=== PATIENT | female | born 1935 | race African-American/Black ===

== ENCOUNTER 2017-07-14 12:58 | Inpatient (IN) | payer MEDICARE ==
[~2017-07-14] VITALS: Ht 157.5 cm; Wt 66.2 kg
--- NOTE | ~2017-07-14 | EKG ---
[place] [address] [address] [facility] [place] [address] ELECTROCARDIOGRAM REPORT Name: LOBO PONCE Room #: 315-P ADM IN M.R.#: [id number] Admission: 07/14/17 Attend Phys: Kev Aparicio MD Discharge: Date of : 33 Report #: [id number] THIS REPORT FOR: //name// [facility] ED Test Date: 2017-07-14 Test Time: 14:52:18 Pat Name: LOBO PONCE Department: Room: [facility] Gender: F Rn Lab: [place] PANIAGUA : 1935 Requested By: Rissa Hearn Order Number: [id number] MD: Ryley Suarez Measurements Intervals [place] Rate: 57 P: 56 HI: 145 QRS: 33 QRSD: 99 T: 25 QT: 491 QTc: 478 Interpretive Statements Sinus rhythm Probable LVH with secondary repol abnrm Possible septal infarct, age indeterminate Compared to ECG 06/20/2009 10:56:59 No significant change was found Electronically Signed On 07-15-2017 12:42:51 CDT by Ryley Suarez [email or web address] <ELECTRONICALLY SIGNED> By: Ryley Suarez MD, [facility] 07/15/17 1242 1452 1452 Ryley Suarez MD, [facility] /EPI
--- NOTE | ~2017-07-14 | 2DMMODE ---
[facility] [address] [place] [address] 2 D/M-MODE ECHOCARDIOGRAM Name: LOBO PONCE Room #: 315-P ADM IN M.R.#: [id number] Admission: 07/14/17 Attend Phys: Kev Aparicio, Discharge: Date of : 33 Date of Service: 07/15/17 0940 Report #: [id number] THIS REPORT FOR: //name// APPROVED REPORT Study performed: 07/15/2017 08:23:42 EXAM: Comprehensive 2D, Doppler, and color-flow Echocardiogram Patient Location: Bedside Room #: 315 Status: routine BSA: 1.67 HR: 66 bpm BP: 141/67 mmHg Other Information Study Quality: Good Indications Syncope 2D Dimensions RVDd: 37.08 mm LVEF(%): 81.83 (>50%) IVSd: 9.99 (7-11mm) LVOT Diam: 18.68 (18-24mm) LVDd: 44.74 mm PWd: 8.90 (7-11mm) Ascending Ao: 29.69 (22-36mm) LVDs: 22.20 (25-40mm) Aortic Root: 25.75 mm Conley's LVEF: 81.83 % Volumes Left Atrial Volume (Systole) Single Plane 4CH: 40.60 mL Single Plane 2CH: 48.67 mL LA ESV Index: 30.00 mL/m2 Aortic Valve AoV Peak Jens.: 1.32 m/s AO Peak Gr.: 7.90 mmHg LVOT Max P.97 mmHg LVOT Max V: 1.12 m/s JV Vmax: 2.32 cm2 Mitral Valve E/A Ratio: 0.6 MV Decel. Time: 339.73 ms MV E Max Jens.: 0.79 m/s [facility] [place] [address] 2 D/M-MODE ECHOCARDIOGRAM Name: LUCYSHADoeLOBO Room #: 315-P ADM IN M.R.#: [id number] Admission: 07/14/17 Attend Phys: Kev Aparicio, Discharge: Date of : 33 Date of Service: 07/15/17 0940 Report #: [id number] A Jens.: 1.28 m/s MV PHT: 98.52 ms IVRT: 106.11 ms Pulmonary Valve PV Peak Jens.: 1.09 m/s PV Peak Gr.: 4.79 mmHg Pulmonary Vein P Vein S: 0.50 m/s P Vein A: 0.39 m/s P Vein D: 0.27 m/s P Vein A Dur.: 124.6 msec P Vein S/D Ratio: 1.85 Tricuspid Valve TR Peak Jens.: 2.62 m/s RAP Estimate: 5.00 mmHg TR Peak Gr.: 27.51 mmHg PA Pressure: 33.00 mmHg Left Ventricle The left ventricle is normal size. There is normal LV segmental wall motion. Borderline concentric left ventricular hypertrophy. The left ventricular systolic function is normal. The left ventricular ejection fraction is within the normal range. LVEF is 60-65%. Grade I - abnormal relaxation pattern. Right Ventricle The right ventricle is normal size. The right ventricular systolic function is normal. Atria The left atrium size is normal. The right atrium size is normal. Aortic Valve Aortic valve leaflets are mildly thickened. No aortic regurgitation is present. There is no aortic valvular stenosis. Mitral Valve The mitral valve is normal in structure. Trace to mild mitral regurgitation. No evidence of mitral valve stenosis. Tricuspid Valve The tricuspid valve is normal in structure. There is trace to mild tricuspid regurgitation. The right atrial pressure is estimated at 5 mmHg. There is mild pulmonary hypertension with an estimated PAP of [address] [address] 2 D/M-MODE ECHOCARDIOGRAM Name: LOBO PONCE Room #: 315-P [facility] IN [facility]#: [id number] Admission: 07/14/17 Attend Phys: Kev Aparicio, Discharge: Date of : 33 Date of Service: 07/15/17 0940 Report #: [id number] Pulmonic Valve The pulmonary valve is normal in structure. There is no pulmonic valvular regurgitation. Great Vessels The aortic root is normal in size. The ascending aorta is normal in size. IVC is normal in size and collapses >50% with inspiration. Pericardium There is no pericardial effusion. <Conclusion> The left ventricle is normal size. Borderline concentric left ventricular hypertrophy. The left ventricular systolic function is normal. The left ventricular ejection fraction is within the normal range. LVEF is 60-65%. Grade I - abnormal relaxation pattern. The right ventricle is normal size. The left atrium size is normal. Aortic valve leaflets are mildly thickened. There is no aortic valvular stenosis. Trace to mild mitral regurgitation. There is trace to mild tricuspid regurgitation. The right atrial pressure is estimated at 5 mmHg. There is mild pulmonary hypertension with an estimated PAP of 33 mmHg. There is no pericardial effusion. <ELECTRONICALLY SIGNED> By: Fei Talavera MD, FACC 07/15/17939 9 9 Fei Talavera MD, FACC /INF
--- NOTE | ~2017-07-14 | EKG ---
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 : 1935 Requested By: Rissa Hearn Order Number: [id number] MD: Ryley Suarez Measurements Intervals [place] Rate: 64 P: 66 AK: 144 QRS: 18 QRSD: 112 T: 23 QT: 474 QTc: 489 Interpretive Statements Sinus rhythm LVH with secondary repolarization abnormality Septal infarct, age indeterminate Compared to ECG 06/20/2009 10:56:59 Septal Q waves are now present Electronically Signed On 07-15-2017 12:40:13 CDT by Ryley Suarez [email or web address] <ELECTRONICALLY SIGNED> By: Ryley Suarez MD, [facility] 07/15/17 [facility]0 1315 1315 Ryley Suarez MD, [facility] /EPI
[~2017-07-14 12:58] MED LIST: ASPIR 8181 M1 PO; GLIMEPIRIDE1 MG PO; IRON325 PO; ISORDIL40 M1 PO; VALSARTAN-HCTZ1 EAC3 PO; VITAMIN D1000 UNI1 PO; VITAMINC500 PO; ZOCOR20 MG PO
[2017-07-14 12:59] VITALS: BP 136/75
[2017-07-14 13:19] LABS: ABSOLUTE NEUTROPHILS 6.1 thou/uL (1.4-8.2); BASOPHILS 0.8 % (0.0-2.0); EOSINOPHILS 2.7 % (0.0-3.0); HEMATOCRIT 38.4 % (37.0-47.0); HEMOGLOBIN 12.8 gm/dL (12.0-15.0); LYMPHOCYTES 19.8 % (24.0-44.0); MCH 29.9 pg (26.0-34.0); MCHC 33.3 g/dL (28.0-37.0); MCV 89.7 fL (80.0-100.0); MONOCYTES 8.2 % (1.0-8.0); PLATELET COUNT 294 thou/uL (150-400); POLYS 68.5 % (36.0-66.0); RBC 4.28 mil/uL (4.20-5.00); RDW 14.2 % (10.5-14.5); WBC 8.8 thou/uL (4.0-11.0)
[2017-07-14 13:27] LABS: MANUAL DIFF NO
[2017-07-14 13:28] LABS: ANION GAP 8 mmol/L (7-16); BUN 13 mg/dL (7-18); CALCIUM 9.3 mg/dL (8.5-10.1); CHLORIDE 107 mmol/L (98-107); CO2 26 mmol/L (21-32); CREATININE 1.3 mg/dL (0.6-1.0); GLUCOSE 156 mg/dL (74-106); POTASSIUM 3.6 mmol/L (3.5-5.1); SODIUM 141 mmol/L (136-145)
[2017-07-14 13:37] LABS: ALBUMIN 3.5 g/dL (3.4-5.0); ALKALINE PHOSPHATASE 68 U/L (46-116); SGOT 26 U/L (15-37); SGPT 20 U/L (30-65); TOTAL BILIRUBIN 0.3 mg/dL (<0.1-1.0); TOTAL PROTEIN 7.4 g/dL (6.4-8.2); TROPONIN-I < 0.04 ng/mL (<0.04-0.07)
[2017-07-14 14:03] LABS: PROTIME 10.4 Seconds (9.3-11.4)
[2017-07-14 16:38] VITALS: BP 158/82
[2017-07-14 17:02] VITALS: BP 126/72
[2017-07-14 17:45] VITALS: BP 175/82
[2017-07-14 19:25] VITALS: BP 153/76
[2017-07-15] VITALS: BP 117/72
[2017-07-15 04:16] VITALS: BP 141/67
[2017-07-15 05:55] LABS: BASOPHILS 0.3 % (0.0-2.0); EOSINOPHILS 1.9 % (0.0-3.0); HEMATOCRIT 33.3 % (37.0-47.0); HEMOGLOBIN 11.1 gm/dL (12.0-15.0); LYMPHOCYTES 16.5 % (24.0-44.0); MCHC 33.5 g/dL (28.0-37.0); MCV 89.8 fL (80.0-100.0); MONOCYTES 10.4 % (1.0-8.0); PLATELET COUNT 265 thou/uL (150-400); POLYS 70.9 % (36.0-66.0); RDW 14.6 % (10.5-14.5); WBC 8.5 thou/uL (4.0-11.0)
[2017-07-15 05:56] LABS: MANUAL DIFF NO
[2017-07-15 06:11] LABS: ANION GAP 5 mmol/L (7-16); BUN 13 mg/dL (7-18); CALCIUM 8.9 mg/dL (8.5-10.1); CHLORIDE 107 mmol/L (98-107); CHOLESTEROL 157 mg/dL (<200); CO2 29 mmol/L (21-32); CREATININE 1.1 mg/dL (0.6-1.0); GLUCOSE 122 mg/dL (74-106); HDL CHOLESTEROL 34 mg/dL (>40); LDL CHOLESTEROL 85 mg/dL (<100); POTASSIUM 3.5 mmol/L (3.5-5.1); SODIUM 141 mmol/L (136-145); TC:HDL 4.6 Ratio (Not establshd); TRIGLYCERIDE 192 mg/dL (<150); VLDL 38 mg/dL (<40)
[2017-07-15 09:54] VITALS: BP 151/79
[2017-07-15 09:55] VITALS: BP 136/76
[2017-07-15 09:56] VITALS: BP 139/84
[2017-07-15 10:05] LABS: URINE BILIRUBIN NEGATIVE (Negative); URINE BLOOD NEGATIVE (Negative); URINE COLOR YELLOW; URINE GLUCOSE-RANDOM* NEGATIVE (Negative); URINE KETONES NEGATIVE (Negative); URINE NITRITE NEGATIVE (Negative); URINE PROTEIN (DIPSTICK) NEGATIVE (Negative); URINE UROBILINOGEN 0.2 E.U./dl (0.2-1.0)
[2017-07-15 10:20] LABS: AMORPHOUS URATES Moderate /LPF (None Seen); CASTS None Seen /LPF (None Seen); SQUAMOUS >10 Many /LPF (0-3); URINE RBC 0-2 Rare /HPF (0-2); URINE WBC 0-5 Rare /HPF (0-5)
[2017-07-15] MEDS ORDERED: FLONASE 0.05%50 MCG NASAL (13:07)
[2017-07-15] MEDS ORDERED: LORATIDINE 10 M10 M1 PO (13:07)
[2017-07-15 13:57] VITALS: BP 139/84
== END 2017-07-15 14:33 | disposition home or self-care (01) | DRG 684 ==
LOC: ER 12:58 → EROBS 16:17 → 3N 16:17 → ENTRNSPT 07-15 14:18 → EDTRNSPTSTS 07-15 14:23 → 3N 07-15 14:33
PROVIDERS: Family Medicine; Physician Assistant
DX: N17.9 Acute kidney failure, unspecified (principal); I10 Essential (primary) hypertension; Z60.2 Problems related to living alone; S09.90XA Unspecified injury of head, initial encounter; E11.9 Type 2 diabetes mellitus without complications; J06.9 Acute upper respiratory infection, unspecified; E86.0 Dehydration; Z79.899 Other long term (current) drug therapy; Z90.710 Acquired absence of both cervix and uterus; Z88.2 Allergy status to sulfonamides; Z91.040 Latex allergy status; Z87.891 Personal history of nicotine dependence
CPT/HCPCS: 10096

== ENCOUNTER → 2017-12-13 | Outpatient (CLI) | payer MEDICARE ==
[~2017-12-13] VITALS: Ht 157.5 cm; Wt 65.6 kg
[~2017-12-13] MED LIST changes: +FLONASE 0.05%50 MCG NASAL; +LORATIDINE 10 M10 M1 PO
--- NOTE | ~2017-12-13 | HPC ---
[facility] [place] [address] PAIN MANAGEMENT CONSULTATION Name: LOBO PONCE Room #: REG CORAL Rafaela.#: [id number] Admission: 12/13/17 Attend Phys: Terry Blake DO Discharge: Date of : 34 Report #: [id number] THIS REPORT FOR: //name// CC: Kev Blake The patient is an 82-year-old female, prior seen in the pain clinic 05/08/2016, now some 9 months ago. Had epidural injection at that time with overall improvement of baseline pain. The patient notes pain began to recur, but it is a little bit different. Pain is in the left low back. She rates the pain 5 on a VAS. Notes it radiates into the buttocks and into the hip, really not down the leg. She notes prior epidural injection had afforded 100% relief and thinks there is still some relief ongoing. She describes pain now a 5/10, worse in the morning. Flare up started a month ago without antecedent trauma and overuse. She does note she has had a syncopal event in July. She had a prior syncopal event 2 years ago. Workup was unremarkable. PHYSICAL EXAMINATION: Shows an 82-year-old female, BMI is 26.4 kilograms per meter squared. Blood pressure is 174/96, pulse 77, respirations 18. Alert and oriented to person, place and time, judged to be a reasonable historian. Cervical range of motion is full. Upper extremity strength is preserved. Rises from chair using armrest. Tender over the left SI. Lower extremity strength is generally symmetric. Straight leg raise negative. Positive Anastasia test. DIAGNOSTIC STUDIES: She had a cervical MRI done 07/14/2017 after her fall. It showed cervical spondylosis, but no traumatic disruption or osseous pathology was noted. A bilateral carotid duplex at that time was unremarkable noting no significant stenosis. Right elbow had showed some mild osteoporosis, but no fracture. CT of the head showed no intracranial bleed. Lumbar MRI is much more dated from 2013. Has lumbar spondylosis with severe lateral recess stenosis at L3-L4 and L4-L5. ASSESSMENT: 1. 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 2. Lumbar radiculopathy by clinical exam and history, symptoms relatively quiescent at present. 3. New onset of syncope. Etiology remains obscure. RECOMMENDATION: After a long discussion with the patient today, she was seen in the pain clinic for approximately 30 minutes reviewing significant interval history. We have elected to move forward with left SI joint injection under fluoroscopy today. Core strengthening exercises. Follow up in 2 weeks for evaluation. May consider epidural injection if radicular symptoms are problematic at that time. [address] [address] PAIN MANAGEMENT CONSULTATION Name: LOBO PONCE Room #: REG CORAL Howard#: [id number] Admission: 12/13/17 Attend Phys: Terry Blake DO Discharge: Date of : 34 Report #: [id number] Thank you for allowing me to participate in the patient's care. MEDICATIONS: Unchanged. PROCEDURE NOTE: Left SI joint injection under fluoroscopy. PROCEDURE: After written informed consent was obtained, the patient was taken to the fluoroscopy suite and placed in prone position. After sterile prep and drape, skin was raised. A 22-gauge stylet needle was placed to contact the inferior aspect of the left SI joint. Negative aspiration was accomplished. A 1 mL of Omnipaque was injected, which showed spread in the joints followed with 40 mg triamcinolone plus 2 mL of 0.5% preservative-free bupivacaine. Needle was removed. The area was cleansed, band-aid was applied. The patient was monitored for an appropriate period of time, discharged in good and stable condition. <ELECTRONICALLY SIGNED> By: Terry Blake DO 12/15/17 1417 1609 1935 Terry Blake DO /nt
[2017-12-13 09:40] VITALS: BP 174/96
== END | disposition home or self-care (01) ==
LOC: PAIN 06:51
DX: M53.3 Sacrococcygeal disorders, not elsewhere classified (principal); M54.16 Radiculopathy, lumbar region; R55 Syncope and collapse

== ENCOUNTER → 2019-04-26 | Outpatient (CLI) | payer MEDICARE ==
[~2019-04-26] VITALS: Ht 157.5 cm; Wt 65.8 kg
[~2019-04-26] MED LIST changes: +CLARITIN10 MG PO; +IRBESARTAN-HCT1 EAC1 PO
[2019-04-26 11:04] VITALS: BP 155/80
== END | disposition home or self-care (01) ==
LOC: PAIN 06:51
DX: M54.16 Radiculopathy, lumbar region (principal); G89.29 Other chronic pain

== ENCOUNTER → 2019-05-30 | Outpatient (CLI) | payer MEDICARE ==
[~2019-05-30] VITALS: Ht 157.5 cm; Wt 63.0 kg
[2019-05-30 10:05] VITALS: BP 151/87
--- NOTE | 2019-05-30 10:09 | NUR ---
Pain Clinic Assessment: 1. History of Osteoarthritis: BACK History of Rheumatoid Arthritis: Not Applicable 2. Height: 5 ft. 2 in. 157.5 cm. Weight: 139.0 lb. oz. 63.050 kg. Patient's BMI: 25.4 3. Vital Signs: BP: 151/87 Pulse: 80 Resp: 16 Temp: 02 Sat: 97 ECG Mon: 4. Pain Intensity: 5 5. Fall Risk: Dizziness: N Needs help standing or walking: N Fallen in the last 3 months: N Fall risk comments: 6. Patient on Blood Thinner: None 7. History of Hypertension: Y 8. Opioid Therapy greater than 6 weeks: N Opiate Contract Signed: 9. Risk Assessment Tool Provided: LOW RISK 0/3 10. Functional Assessment Tool: 11. Recreational Drug Use: Never Drug Type: Tobacco Use: Never Smoker Tobacco Type: Amount or Packs/day: How Many Years: Alcohol Use: No Frequency: Quant:
--- NOTE | 2019-05-30 16:57 | HPC ---
[facility] [address] [place] [address] PAIN MANAGEMENT CONSULTATION Name: LOBO PONCE Room #: REG CORAL M.Salvador.#: [id number] Admission: 05/30/19 ������������������ Attend Phys: Rigo Blake DO Discharge: ������������������ Date of : 34 Report #: [id number] THIS REPORT FOR: //name// CC: Rigo Aparicio MD DATE OF SERVICE: 05/30/2019 CHIEF COMPLAINT: Low back pain, bilateral lower extremity pain with paresthesias. HISTORY OF PRESENT ILLNESS: As you know, the patient is an 83-year-old female who returns today in followup visit with recurrent back pain, now reporting pain score 5/10. The patient reports pain begins in low back, radiates down both legs all the way to her feet. She indicates her pain is aching, numbness and tingling when describing symptoms. She underwent an epidural injection under fluoroscopic guidance, which provided greater than 50% improvement in overall pain that is ongoing. She returns today with a pain level of 5/10, requesting to undergo next in the series in hopes of building on success of previous intervention. The patient denies injury or trauma that led to symptom continuation. ALLERGIES: SULFA, LATEX. CURRENT MEDICATIONS: Isosorbide dinitrate, simvastatin, glimepiride, ferrous sulfate, irbesartan/hydrochlorothiazide, loratadine. SOCIAL HISTORY: The patient denies tobacco, alcohol, IV or illicit drug use. She is retired, retired years ago, accompanied by daughter present in room today. IMAGING: No new imaging available. PQRS: The patient has osteoarthritic change in the lumbar spine, bilateral hips, bilateral knees and bilateral hands. No rheumatoid arthritis. The patient places pain score 5/10. She is not a fall risk, has not had a fall in the last three months. She is not on blood thinners, but is treated for hypertension. She is not on opioids, but does have a low opioid addiction potential based on our assessment tool. Our pain impact is 18/70 indicating mild interference of daily activities secondary to pain. PHYSICAL EXAMINATION: VITAL SIGNS: Blood pressure 151/87, pulse 80, respiratory rate 16 and unlabored. The patient is 97% on room air. Height 5 feet 2 inches tall, weight 139 pounds, BMI calculated 25.4. [address] [address] PAIN MANAGEMENT CONSULTATION Name: LOBO PONCE Room #: REG CORAL Lee#: [id number] Admission: 05/30/19 ������������������ Attend Phys: Rigo Blake DO Discharge: ������������������ Date of : 33 Report #: [id number] GENERAL: Well-developed, well-nourished, well-hydrated 83-year-old female appearing stated age. Pain is rated today around 5/10. HEENT: Normocephalic, atraumatic. Pupils equal, round, reactive to light. EXTREMITIES: Show no clubbing, no cyanosis, and no edema. MUSCULOSKELETAL: Lower extremity strength is symmetrical again today. Deconditioning noted bilaterally. Seated straight leg raising negative. Supine straight leg raising mildly positive. Anastasia's test negative. Modified Gaenslen's is positive for axial low back pain. Gait mildly antalgic, stance slightly forward flexed lumbar spine, mild loss of lordotic curvature. ASSESSMENT: 1. Symptomatic lumbar radiculopathy. 2. Displacement of lumbar intervertebral disk with radiculopathy. 3. Lumbosacral spondylosis with radiculopathy. 4. Lumbar degeneration. 5. Chronic intractable pain. PLAN: 1. The patient has returned today in followup visit requesting to undergo next in the series of lumbar epidural injections under fluoroscopic guidance. She reports greater than 50% improvement in overall pain with the previous epidural injection. She is hopeful to see similar improvement today. She has been advised of risks and benefits of this procedure. These risks include but are not necessarily limited to bleeding, bruising, infection, worsening pain, no relief of pain, also risk of temporary or permanent muscle weakness, temporary or permanent nerve damage, possible paralysis, post-dural puncture headache and . The patient states she understood and wished to proceed. 2. No medication changes made at today's visit. The patient will continue current medical therapy as previously prescribed. 3. We will see the patient back in followup visit on an as needed basis for possible next in the series of lumbar epidural injections. ��������������������������������������������� <ELECTRONICALLY SIGNED> ���������������������������������������� By: Rigo Blake DO ��������������������������������������������� 05/30/19 1657 1312 1529 Rigo Blake DO /nt
--- NOTE | 2019-05-30 16:57 | P ---
[facility] [address] PROCEDURE REPORT Name: LOBO PONCE Room #: REG Marisol Russo.#: [id number] Admission: 05/30/19 ������������������ Attend Phys: Rigo Blake DO Discharge: ������������������ Date of : 33 Report #: [id number] THIS REPORT FOR: //name// CC: Rigo Aparicio MD DATE OF SERVICE: 05/30/2019 DESCRIPTION OF PROCEDURE: L5-S1 left parasagittal epidural steroid injection under fluoroscopic guidance. After obtaining written consent, the patient was taken back to fluoroscopy suite, placed in prone position with pillow under abdomen to decrease lumbar lordosis. Skin overlying lumbosacral area then prepped and draped in aseptic fashion. The L5-S1 vertebral interspace identified by AP fluoroscopy. Skin and subcutaneous tissue overlying target site of injection was anesthetized with 3 mL of 1% lidocaine. A 20-gauge 3-1/2-inch Tuohy needle advanced under fluoroscopic guidance towards the epidural space using left paracentral approach. Epidural space identified using loss of resistance to air technique. After negative aspiration for heme or cerebrospinal fluid, 0.5 mL of Omnipaque injected. Lumbar epidurogram confirmed using both AP and lateral fluoroscopy. After negative aspiration for heme or cerebrospinal fluid, 5 mL of a solution containing 2 mL 40 mg per mL, 80 mg total triamcinolone and 3 mL of lidocaine 1% injected slowly. Needle retracted approximately half way, flushed with 1 mL of 1% lidocaine and then removed. Sterile bandage placed over injection site. No new motor deficits present in lower extremity following procedure. The patient tolerated procedure well, carefully escorted to recovery room in stable condition. No apparent complications. After meeting discharge criteria, the patient discharged home. ��������������������������������������������� <ELECTRONICALLY SIGNED> ���������������������������������������� By: Rigo Blake DO ��������������������������������������������� 05/30/19 1657 1312 1531 Rigo Blake DO /nt
== END | disposition home or self-care (01) ==
LOC: PAIN 06:58
DX: M51.16 Intervertebral disc disorders with radiculopathy, lumbar region (principal); M47.27 Other spondylosis with radiculopathy, lumbosacral region; G89.29 Other chronic pain; I10 Essential (primary) hypertension; M19.90 Unspecified osteoarthritis, unspecified site; Z98.890 Other specified postprocedural states; Z91.040 Latex allergy status; Z79.899 Other long term (current) drug therapy; Z88.2 Allergy status to sulfonamides

== ENCOUNTER → 2019-12-13 | Outpatient (CLI) | payer MEDICARE | LOC: MRI 10:03 | DX: G31.89 Other specified degenerative diseases of nervous system (principal); J32.9 Chronic sinusitis, unspecified; J34.89 Other specified disorders of nose and nasal sinuses; M54.5 Low back pain ==

== ENCOUNTER → 2020-07-09 | Outpatient (CLI) | payer OTHER, BC | LOC: SJCVC 13:51 | PROVIDERS: ATTEND Internal Medicine | DX: R94.31 Abnormal electrocardiogram [ECG] [EKG] (principal); I49.1 Atrial premature depolarization; I10 Essential (primary) hypertension; E78.2 Mixed hyperlipidemia; E11.9 Type 2 diabetes mellitus without complications; Z79.899 Other long term (current) drug therapy ==

== ENCOUNTER → 2020-07-10 | Outpatient (CLI) | payer OTHER, BC | LOC: SJCVCIMAG 06:40 | PROVIDERS: ATTEND Internal Medicine | DX: I08.1 Rheumatic disorders of both mitral and tricuspid valves (principal); I11.9 Hypertensive heart disease without heart failure; E78.5 Hyperlipidemia, unspecified; E11.9 Type 2 diabetes mellitus without complications; Z90.710 Acquired absence of both cervix and uterus ==

== ENCOUNTER 2021-09-20 14:06 | Emergency (ER) | payer OTHER, BC ==
[~2021-09-20] VITALS: Ht 157.5 cm; Wt 62.6 kg
[2021-09-20 14:54] LABS: HEMATOCRIT 45.3 % (37.0-47.0); HEMOGLOBIN 14.5 gm/dL (12.0-15.0); MCH 29.5 pg (26.0-34.0); MCHC 32.1 g/dL (28.0-37.0); MCV 91.9 fL (80.0-100.0); RBC 4.93 mil/uL (4.20-5.00); RDW 13.8 % (10.5-14.5); WBC 6.9 thou/uL (4.0-11.0)
[2021-09-20 14:59] LABS: ANION GAP 8 mmol/L (7-16); BUN 14 mg/dL (7-18); CALCIUM 9.3 mg/dL (8.5-10.1); CHLORIDE 104 mmol/L (98-107); CO2 31 mmol/L (21-32); CREATININE 1.1 mg/dL (0.6-1.0); GLUCOSE 112 mg/dL (74-106); POTASSIUM 3.7 mmol/L (3.5-5.1); SODIUM 143 mmol/L (136-145)
[2021-09-20] MEDS ORDERED: MEMANTINE HCL10 MG PO (15:06)
[2021-09-20] MEDS ORDERED: ARICEPT10 MG PO (15:07)
[2021-09-20 15:08] LABS: ALBUMIN 4.1 g/dL (3.4-5.0); MAGNESIUM 2.5 mg/dL (1.8-2.4); PHOSPHORUS 3.7 mg/dL (2.6-4.7); SALICYLATE < 2.8 mg/dL (2.8-20.0); SGOT 28 U/L (15-37); SGPT 28 U/L (14-59); TOTAL BILIRUBIN 0.7 mg/dL (0.2-1.0); TOTAL PROTEIN 8.1 g/dL (6.4-8.2)
[2021-09-20 16:50] LABS: URINE BILIRUBIN NEGATIVE (Negative); URINE BLOOD TRACE (Negative); URINE CLARITY CLEAR; URINE COLOR YELLOW; URINE GLUCOSE-RANDOM* NEGATIVE (Negative); URINE KETONES NEGATIVE (Negative); URINE LEUKOCYTES-REFLEX 2+ (Negative); URINE NITRITE-REFLEX NEGATIVE (Negative); URINE PROTEIN (DIPSTICK) NEGATIVE (Negative); URINE UROBILINOGEN 0.2 E.U./dl (0.2-1.0)
[2021-09-20 16:57] LABS: AMP/METHAMP Negative (Negative); BARBITURATES Negative (Negative); BENZODIAZEPINES Negative (Negative); COCAINE Negative (Negative); METHADONE Negative (Negative); OPIATES Negative (Negative); PCP Negative (Negative)
[2021-09-20 17:04] LABS: BACTERIA-REFLEX 1-9 Few /HPF (None Seen); CASTS None Seen /LPF (None Seen); CRYSTALS None Seen /LPF (None Seen); SQUAMOUS 0-3 Few /LPF (0-3); URINE RBC 1-2 Rare /HPF (NONE SEEN)
[2021-09-20] MEDS ORDERED: CEFPODOXIME PR200 M1 PO (17:40)
[2021-09-20 18:15] VITALS: BP 150/75
--- NOTE | 2021-09-21 08:14 | EKG ---
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 : 1935 Requested By: Boo Blancas Order Number: [id number] MD: Joaquin Faye Measurements Intervals [place] Rate: 49 P: 55 ND: 138 QRS: 1 QRSD: 89 T: -28 QT: 529 QTc: 478 Interpretive Statements Sinus bradycardia Atrial premature complexes in couplets Probable left atrial enlargement LVH with secondary repolarization abnormality Anterior Q waves, possibly due to LVH Compared to ECG 07/14/2017 14:52:18 Atrial premature complex(es) now present Q waves now present Sinus rhythm no longer present Myocardial infarct finding no longer present Electronically Signed On 09-21-2021 8:14:11 BICYCLE I ASSEMBLER by Joaquin Faye [email or web address] <ELECTRONICALLY SIGNED> By: Joaquin Faye MD, FAC 09/21/21 0814 1423 1423 Joaquin Faye MD, [facility] /EPI
== END 2021-09-20 18:15 | disposition home or self-care (01) ==
LOC: ER 14:06
PROVIDERS: Emergency Medicine
DX: N39.0 Urinary tract infection, site not specified (principal); F02.80 Dementia in other diseases classified elsewhere, unspecified severity, without behavioral disturbance, psychotic disturbance, mood disturbance, and anxiety; E11.9 Type 2 diabetes mellitus without complications; I10 Essential (primary) hypertension; Z90.710 Acquired absence of both cervix and uterus; Z79.891 Long term (current) use of opiate analgesic; Z79.899 Other long term (current) drug therapy; Z88.2 Allergy status to sulfonamides; Z87.891 Personal history of nicotine dependence; W18.30XA Fall on same level, unspecified, initial encounter; Y93.89 Activity, other specified; Y92.89 Other specified places as the place of occurrence of the external cause; Y99.8 Other external cause status